=== PATIENT | male | born 1950 | race Caucasian/White ===

== ENCOUNTER 2019-07-23 07:39 | Inpatient (IN) ==
[2019-05-27 12:18] LABS: Basophils # (auto) 0.02 K/uL (0-0.2); Basophils % (auto) 0.3 %; Eosinophils # (auto) 0.06 K/uL (0-0.5); Eosinophils % (auto) 0.8 %; Hematocrit (blood only) 40.8 % (42-52); Hemoglobin 14.5 g/dL (14.0-18.0); Immature Granulocytes # (auto) 0.02 K/uL (0.00-0.02); Immature Granulocytes % (auto) 0.3 %; Lymphocytes # (auto) 1.11 K/uL (1.2-3.4); Lymphocytes % (auto) 15.4 %; Mean Corpuscular Hgb Conc 35.5 g/dL (32-36); Mean Corpuscular Volume 88.9 fL (80-100); Mean Platelet Volume 9.7 fL (7.4-10.4); Monocytes # (auto) 0.59 K/uL (0.11-0.59); Monocytes % (auto) 8.2 %; Neutrophils # (auto) 5.41 K/uL (1.4-6.5); Platelet Count 266 K/uL (130-400); RDW Coefficient of Variation 13.8 % (11.5-14.5); RDW Standard Deviation 45.1 fL (36.4-46.3); Red Blood Count 4.59 M/uL (4.7-6.1); White Blood Count 7.21 K/uL (4.8-10.8)
[2019-05-27 12:31] LABS: Sodium 137 mmol/L (136-145)
[2019-05-27 12:32] LABS: BUN Creatinine Ratio 13.9 (10-20); Blood Urea Nitrogen 16 mg/dl (7-18); Calcium 9.2 mg/dl (8.5-10.1); Carbon Dioxide 29 mmol/L (21-32); Chloride 103 mmol/L (98-107); Est GFR (African American) 75.6; Est GFR (Non-African American) 65.3; Glucose 95 mg/dl (70-99); Potassium 3.7 mmol/L (3.5-5.1)
[2019-05-27 13:25] LABS: Appearance Urine Clear (Clear); Bacteria Urine Automated Negative (Negative); Bilirubin Urine Negative (Negative); Blood Urine Negative (Negative); Cast Urine Automated 0 /lpf (0-5); Color Urine Yellow; Glucose Urine UA Negative (Negative); Ketones Urine Negative (Negative); Leukocyte Esterase Urine Negative (Negative); Nitrite Urine Negative (Negative); RBC Urine Automated 0-4 /hpf (0-4); Specific Gravity Urine 1.022 (1.000-1.030); Urobilinogen Urine Negative (Negative); pH Urine 7.5 (4.5-7.5)
[2019-05-27 13:47] LABS: Protein Urine Negative (Negative)
--- NOTE | 2019-05-30 15:47 | Anesthesiology Consultation ---
Date of Service May 30, 2019 Assessment & Plan (1) Encounter for pre-operative examination: Hx PNA: 04/2019: patient not seen at [facility] but per RN phone interview patient asymptomatic s/p treatment for PNA. CXR with previously seen MOHINDER consolidation has mostly resolved (Continued follow-up recommended to establish stability or resolution). Reviewed with Dr. Lobato, nothing further needed prior to surgery from anesthesia perspective. Will have anesthesiologist decide if repeat CXR needed based on evaluation of clinical status AM DOS. Chart Review Chart Review: Acceptable Risk for Surgery (pending evaluation of clinical status AM DOS) and Patient NOT seen in Pre Admission Testing History Surgery Operation Date: 06/19/19 07:15 Proposed Procedures p Left Shoulder Arthroscopy with Revision Rotator Cuff Repair - Sagar Sánchez MD Height/Weight Height: 6 ft Weight: 88.451 kg Allergies Allergy/AdvReac Type Severity Reaction Status Date / Time No Known Allergies Allergy Unverified 05/22/19 07:59 Medications Home Medications Medication Instructions Recorded Confirmed Last Taken Advair Diskus 1 dose INHALATION QAM 05/22/19 05/22/19 Unknown albuterol sulfate 1 puff INHALATION Q6H PRN 05/22/19 05/22/19 Unknown amlodipine 10 mg PO QAM 05/22/19 05/22/19 Unknown aspirin 81 mg PO QAM 05/22/19 05/22/19 Unknown atorvastatin [Lipitor] 40 mg PO PM 05/22/19 05/22/19 Unknown calcium carbonate-vitamin D3 2 tab PO QAM 05/22/19 05/22/19 Unknown [Calcium 600 with Vitamin D3] febuxostat [Uloric] 80 mg PO QAM 05/22/19 05/22/19 Unknown finasteride 5 mg PO QAM 05/22/19 05/22/19 Unknown fluoxetine 20 mg PO QAM 05/22/19 05/22/19 Unknown lisinopril-hydrochlorothiazide 1 tab PO QAM 05/22/19 05/22/19 Unknown montelukast [Singulair] 10 mg PO PM 05/22/19 05/22/19 Unknown multivitamin 1 tab PO QAM 05/22/19 05/22/19 Unknown omeprazole 20 mg PO QAM 05/22/19 05/22/19 Unknown Past Medical History Medical History Anxiety Asthma BPH (benign prostatic hyperplasia) Depression GERD (gastroesophageal reflux disease) Gout Hearing deficit B/L POLLOCK History of recent pneumonia 04/2019- "resolved" s/p treatment Hyperlipidemia Hypertension Osteopenia Past Family History Family History Father Family history of diabetes mellitus Grandmother (Maternal) Family history of diabetes mellitus Past Surgical History Surgical History History of anesthesia reaction difficult time weaning off oxygen after shoulder surgery= no further details History of colonoscopy W/ POLYPECTOMY History of esophagogastroduodenoscopy (EGD) History of left knee replacement History of repair of rotator cuff B/L History of tonsillectomy History of tooth extraction History of transurethral resection of prostate Social History Smoking Status: Never smoker Do You Dip or Chew Tobacco: No Hx Alcohol Use: Yes Alcohol type: beer alcohol intake frequency: a few times a month Hx Substance Use: No substance use type: does not use Testing Laboratory Results 05/27/19 11:38 05/27/19 11:38 Urine Color Yellow 05/27/19 11:38 Urine Appearance Clear (Clear) 05/27/19 11:38 Urine pH 7.5 (4.5-7.5) 05/27/19 11:38 Ur Specific [place] 1.022 (1.000-1.030) 05/27/19 11:38 Urine Protein Negative (Negative) 05/27/19 11:38 Urine Glucose (UA) Negative (Negative) 05/27/19 11:38 Urine Ketones Negative (Negative) 05/27/19 11:38 Urine Nitrite Negative (Negative) 05/27/19 11:38 Ur Leukocyte Esterase Negative (Negative) 05/27/19 11:38 Urine WBC (Auto) 1-5 /hpf (0-5) 05/27/19 11:38 Urine RBC (Auto) 0-4 /hpf (0-4) 05/27/19 11:38 U Hyaline Cast (Auto) 0 /lpf (0-5) 05/27/19 11:38 U Epithel Cells (Auto) 10-20 /lpf (0-5) H 05/27/19 11:38 Urine Bacteria (Auto) Negative (Negative) 05/27/19 11:38 Electrocardiogram Date: 05/27/19 SR with first degree AVB with occasional PVCs at 74bpm. NS STA. Chest X-Ray Date: 04/29/19 Previously seen MOHINDER consolidation has mostly resolved. There is linear scar ring/atelectasis in the MOHINDER. Continued follow-up recommended to establish stability or resolution. Stress Test Date: 10/21/14 Type: exercise Negative stress ECHO/EKG for ischemia at 87% MPHR. Low average exercise tolerance. LVEF 60-65%.
--- NOTE | 2019-06-24 17:19 | PAT Medication Instructions ---
Medication Instructions Date of Service June 24, 2019 Home Medications Advair Diskus 1 dose INHALATION QAM albuterol sulfate 1 puff INHALATION Q6H PRN amlodipine 10 mg PO QAM aspirin 81 mg PO QAM atorvastatin [Lipitor] 40 mg PO HS [Calcium 600 with Vitamin D3] 2 tab PO QAM febuxostat [Uloric] 80 mg PO QAM finasteride 5 mg PO QAM fluoxetine 20 mg PO QAM lisinopril-hydrochlorothiazide 1 tab PO QAM montelukast [Singulair] 10 mg PO PM multivitamin 1 tab PO QAM omeprazole 20 mg PO QAM DO NOT take the morning of surgery [Calcium 600 with Vitamin D3] 2 tab PO QAM finasteride 5 mg PO QAM lisinopril-hydrochlorothiazide 1 tab PO QAM multivitamin 1 tab PO QAM Take morning of surgery With a small sip of water, OTHERWISE NOTHING TO EAT OR DRINK AFTER MIDNIGHT: Advair Diskus 1 dose INHALATION QAM albuterol sulfate 1 puff INHALATION Q6H PRN (if needed, and please bring with you to the hospital) amlodipine 10 mg PO QAM aspirin 81 mg PO QAM febuxostat [Uloric] 80 mg PO QAM fluoxetine 20 mg PO QAM omeprazole 20 mg PO QAM Take evening before surgery albuterol sulfate 1 puff INHALATION Q6H PRN (if needed) atorvastatin [Lipitor] 40 mg PO HS montelukast [Singulair] 10 mg PO PM Other Notes If you have any questions please call us at [phone] or [phone] or [phone] or [phone]
[2019-06-25 15:13] LABS: INR 1.1 (0.9-1.1); Partial Thromboplastin Time 27.3 Seconds (21.0-31.0); Prothrombin Time 10.9 Seconds (9.0-12.0)
[2019-06-26 05:58] LABS: Estimated Average Glucose 134 mg/dl; Hemoglobin A1C 6.3 % (4.5-5.6)
--- NOTE | 2019-07-22 13:34 | History and Physical Report ---
DATE OF ADMISSION: 07/23/2019 CHIEF COMPLAINT: Chronic left shoulder pain and weakness. HISTORY OF PRESENT ILLNESS: This is a 69-year-old male patient of Dr. Smith, complaining of chronic left shoulder pain and weakness. The patient underwent a rotator cuff repair approximately 2 years ago and then again in 11/2018. Both repairs resulted in failure, diagnosed as having a chronic rotator cuff tear on the left shoulder per MRI. At this point in time, the patient wished to proceed with a left reversed total shoulder arthroplasty. PAST MEDICAL HISTORY: Hypertension, hypercholesterolemia, asthma, recent pneumonia, BPH. SOCIAL HISTORY: Nonsmoker, occasional drinker. PAST SURGICAL HISTORY: Bilateral rotator cuff surgery, left total knee replacement and left ACL surgery. FAMILY HISTORY: Noncontributory. REVIEW OF SYSTEMS: Chronic left shoulder pain and weakness with 2 rotator cuff repair failures. Otherwise, denies any shortness of breath, chest pain, nausea, vomiting or other joint complaints. MEDICATIONS: 1. Lisinopril/hydrochlorothiazide 20/12.5 one tablet daily. 2. ProAir HFA 90 mcg actuation aerosol 2 puffs every 4-6 hours as needed. 3. Uloric 40 mg daily. 4. Amlodipine 10 mg daily. 5. Atorvastatin 40 mg daily. 6. Montelukast 10 mg at bedtime. 7. Fluoxetine 20 mg q.a.m. 8. Finasteride 5 mg daily. 9. Testosterone 10 mg/0.5 g actuation topical, it is a transdermal gel pump to affected area in the morning. 10. Nasonex 50 mcg actuation spray 2 sprays daily in each nostril. 11. Aspirin 81 mg daily. 12. Advair HFA 115 mcg/21 mcg actuation inhaler 1 puff twice daily. ALLERGIES: No known drug allergies. HE IS ALLERGIC TO MOLD. PHYSICAL EXAMINATION: GENERAL: A well-developed, well-nourished 69-year-old male in no acute distress. He is alert and oriented x3 and pleasant. HEENT: Normocephalic, atraumatic. Extraocular motions are intact. Pupils are equal and reactive to light. HEART: Regular rate and rhythm, no murmurs. LUNGS: Clear. ABDOMEN: Soft, nontender, bowel sounds present. EXTREMITIES: Left shoulder active range of motion of 0-80 degrees, passively to 180 degrees, external rotation strength is 1/5, internal rotation is 4/5, abduction is 3/5. He has crepitation and pain with range of motion. NEUROLOGIC: Neurovascularly intact in the left upper extremity. DIAGNOSES: 1. Left shoulder rotator cuff arthropathy, chronic tears. 2. Hypertension. 3. Hypercholesterolemia. 4. Asthma. 5. Recent pneumonia. 6. Benign prostatic hyperplasia. PLAN: The patient was advised of his diagnosis. Indications, risks, benefits, postop course have all been reviewed. The patient wished to proceed with a left reversed total shoulder arthroplasty. Necessary consent forms, preoperative testing and clearances will be obtained.
[~2019-07-23 07:39] MED LIST: ACETAMINOPHEN 500 MG TAB PO SCH; CEFAZOLIN 2000MG 2,000 MG/15 ML SYR IV SCH; CeleBREX 200 MG CAP PO SCH; DEXAMETHASONE SOD INJ 4 MG/ML VIAL ONE; FAMOTIDINE 20 MG TAB PO SCH; GABAPENTIN 300 MG CAP PO SCH; GLYCOPYRROLATE 0.2 MG/ML VIAL ONE; LR 15ML/HR IV SCH; METOCLOPRAMIDE HCL 10 MG TABLET PO SCH; MIDAZOLAM HCL 1 MG/ML 2ML VIAL ONE; NEOSTIGMINE METHYLSULFATE 5 MG/5 ML SYR ONE; ONDANSETRON INJ 2 MG/ML 2 ML VIAL ONE; PROPOFOL IV EMULSION 10 MG/ML 20 ML VIAL IV ONE; ROCURONIUM BROMIDE 10 MG/ML 5 ML VIAL ONE; ROPIVACAINE 0.5% 5 MG/ML 30 ML VIAL ONE; dexAMETHasone 4 MG TAB PO SCH; fentaNYL citrate 100 MCG/2 ML VIAL ONE
--- NOTE | 2019-07-23 09:27 | History & Physical Bridge Note ---
Date of Service July 23, 2019 History & Physical Bridge Note I have examined the patient, reviewed the History & Physical and in the interval since the performance of the History & Physical I have noted the following changes of clinical significance: no changes noted
[2019-07-23] MEDS ORDERED: BACITRACIN INJ 50,000 UNIT VIAL ONE (10:51)
--- NOTE | 2019-07-23 13:18 | Post Operative Brief Note ---
Immediate Post Op Note v1 Date of Surgery July 23, 2019 Pre & Post Diagnosis Operation Date: 07/23/19 10:35 Pre-Op Diagnosis: LEFT SHOULDER ROTATOR CUFF ARTHROPATHY, recurrent rotator cuff tear status post rotator cuff repair Post-Op Diagnosis: LEFT SHOULDER ROTATOR CUFF ARTHROPATHY, glenohumeral degenerative arthritis, recurrent rotator cuff tear status post rotator cuff repair and biceps tendinopathy possible prior SLAP repair Procedure Operation Date: 07/23/19 10:35 Actual Procedures p Left Reverse Total Shoulder Arthroplasty, Biceps Tenodesis(Left) - Sagar Sánchez MD Surgeon Sagar Sánchez MD Head Of Merchandise Buying Pavel ASTORGA Estimated Blood Loss 200 Findings Consistent with Post-Op Diagnosis Specimens Humeral head Drains Hemovac Drain Anesthesia Type General Regional Complications none Disposition Accompanied Patient To Recovery: No Disposition: Recovery Room Overlapping Procedure I was present for: the critical portions of procedure.
--- NOTE | 2019-07-23 13:54 | XRay Report ---
XR shoulder LT min 2V routine CLINICAL HISTORY: Post shoulder surgery postoperative evaluation COMPARISON: None. DISCUSSION: Anatomic alignment posttotal left shoulder arthroplasty. Good contact between prosthetic and underlying bone. Expected soft tissue postoperative change. Minimal atelectasis left lung base. IMPRESSION: Anatomic alignment posttotal left shoulder arthroplasty. Minimal atelectasis left base. The above report was generated using voice recognition software. It may contain grammatical, syntax or spelling errors. Electronically signed by: Pavel Bush M.D. 07/23/2019 1:52 PM
--- NOTE | 2019-07-23 13:59 | Anesthesiology Progress Note ---
Date of Service July 23, 2019 Anesthesia Post Procedure Vital Signs Vital Signs: Temp Pulse Pulse Resp BP Pulse Ox 07/23/19 13:55 80 17 121/60 95 07/23/19 13:45 79 15 115/67 95 07/23/19 13:39 97.2 F L 82 14 115/78 97 07/23/19 08:18 98.6 F 80 20 149/94 H 96 Pain Intensity Left Shoulder: Pain Intensity: 4 Transfer of Care Handoff Completed per policy Notes Mental Status: alert / awake / arousable and participated in evaluation Patient Amnestic to Procedure: Yes Nausea / Vomiting: adequately controlled Pain: adequately controlled Airway Patency, RR, SpO2: stable & adequate BP & HR: stable & adequate Hydration State: stable & adequate Anesthetic Complications: no major complications apparent and Pt Satisfied with anesthetic care
[2019-07-23] MEDS ORDERED: ONDANSETRON INJ 2 MG/ML 2 ML VIAL IV PRN (16:37)
[2019-07-23] MEDS ORDERED: NALOXONE HCL 0.4 MG/1 ML VIAL/CARP IV PRN (16:37)
[2019-07-23] MEDS ORDERED: BISACODYL 10 MG SUPP PR PRN (16:37)
[2019-07-23] MEDS ORDERED: MAGNESIUM HYDROXIDE SUSP 30 ML UDC PO PRN (16:37)
[2019-07-23] MEDS ORDERED: ALBUTEROL HFA 8 GM INHALER INH PRN (16:37)
[2019-07-23] MEDS: ACETAMINOPHEN 500 MG TAB PO SCH ×2 (17:00→21:08)
[2019-07-23] MEDS: SODIUM CHLORIDE 0.9% 1000ML 1,000 ML IV SCH (18:29)
[2019-07-23] MEDS: CEFAZOLIN 2000MG 2,000 MG/15 ML SYR IV SCH (18:38)
--- NOTE | 2019-07-23 19:42 | Operative Report ---
Post Operative Report Pre & Post Diagnosis Operation Date: 07/23/19 10:35 Pre-Op Diagnosis: LEFT SHOULDER ROTATOR CUFF ARTHROPATHY recurrent tear failure rotator cuff repair Post-Op Diagnosis: LEFT SHOULDER ROTATOR CUFF ARTHROPATHY recurrent tear failure rotator cuff re pair glenohumeral DJD and biceps tendinopathy Procedure Operation Date: 07/23/19 10:35 Actual Procedures p Left Reverse Total Shoulder Arthroplasty, Biceps Tenodesis(Left) - Sagar Sánchez MD Surgeon Sagar Sánchez MD Account Services Representative Pavel ASTORGA Estimated Blood Loss 200 Findings Consistent with Post-Op Diagnosis Specimens Humeral head Drains 2 Hemovac Anesthesia Type General Regional Complications none Disposition Accompanied Patient To Recovery: No Disposition: Recovery Room Indications 69-year-old male who had a failed rotator cuff repair with recurrent tear rotator cuff. Long decision making process was performed considering revision repair with regeneten grafting versus just proceeding with reverse shoulder replacement. Patient wanted to to proceed with reverse shoulder replacement. Description of Procedure The patient was taken to the operating room and anesthetized under regional block and general anesthetic. The patient was positioned on the operating table in a 30 beachchair position with a towel roll under the medial border of the left scapula. The arm was draped free to be able to manipulate the shoulder as needed. The left upper extremity was prepped and draped in usual sterile fashion. Exam demonstrated subacromial crepitation forward elevation 150 abduction 90 external rotation 60. An anterior deltopectoral approach was performed. A longitudinal incision was made in the deltopectoral interval. The skin was incised sharply. Subcutaneous flaps were elevated off the fascia. The cephalic vein was dissected out and retracted lateral with the deltoid. The clavipectoral fascia was divided at the lateral margin of the conjoined tendon and extended up to the CA ligament. The following findings were noted there was chronic tenosynovitis of the biceps tendon. The subscapularis tendon was intact. There was thickened bursal scar tissue over the rotator cuff where he had previous repair. The supraspinatus tendon had a full-thickness tear with some retraction. There was thin tissue of the infraspinatus with tendinopathy of the infraspinatus. There was partial tearing of the infraspinatus undersurface.. The upper centimeter of the pectoralis was released for inferior exposure. The biceps tendon findings demonstrated significant tenosynovitis fluid collection around the biceps. This tissue was debrided. the biceps tendon was tenodesed to the pectoralis tendon with #2 FiberWire. The proximal biceps was resected. The subscapularis tendon was taken down off the lesser tuberosity using a subperiosteal dissection. A #1 Vicryl traction suture was placed into the free end of the subscapularis tendon and capsule. The subscapular muscle fibers were split longitudinally at the level of the circumflex vessels. The circumflex vessels were identified and tied off with silk ties and divided laterally. A Kitner elevator was used to free up the inferior fibers of the subscapularis off of the capsule. The axillary nerve was identified with a tug test and protected with a blunt Ami retractor between the nerve and the capsule. The subscapularis tendon was then taken down off of the lesser tuberosity subperiosteally and subperiosteal dissection was performed along the neck of the humerus as the arm is gradually actually rotated exposing the humeral head. Humeral head demonstrate that there were small to moderate inferior humeral osteophytes from anterior to posterior and the central region of the humeral head was a 12 mm area of significant articular thinning close to being complete down the bone with some surrounding grade 3 chondral malacia. Retractors were readjusted and the inferior osteophytes were all resected using an artist chisel. A Burrell elevator was used to assist in releasing the capsule of the neck of the humerus. The capsule was divided with Hensley scissors down to the glenoid released off the anterior glenoid and the rotator interval was released to meet the capsular release and a 360 release of the subscapularis was accomplished. A Fukuda retractor was placed into the joint retracting the humeral head posterior. Glenoid findings demonstrated grade III chondromalacia of the glenoid with fissuring over the entire glenoid surface but not exposed bone yet.. The labrum had some old sutures superiorly presumably from a SLAP type repair. The superior labrum and suture material and biceps tendon was resected. an anterior-inferior and posterior inferior capsular release were performed with electrocautery and a Burrell elevator on bone with the axillary nerve protected inferiorly by the retractor. Attention was then taken to the humeral preparation. The cutting guide was placed into the humeral head. It was positioned at 20 of retroversion. Oscillating saw was used to resect the humeral head giving the cut above the level of the posterior rotator cuff insertion site. The humerus was then prepared for the stem. I used the ascend flex stem from [employer]. The sizing broaches were used followed by trial broaches up to a size 6B long which had the appropriate fit and fill. The appropriate sized cut protector was placed. The humerus was then retracted posterior to the glenoid. The glenoid was sized for a 25 baseplate. The guide for the baseplate was positioned in a 10 inferior tilt and the central drill hole was made. The reamer for the 25 baseplate was used. The central drill was widened for the peg. The aequalis hydroxyapatite-coated 25 mm standard baseplate was impacted into position. The base plate was transfixed with superior and inferior locking screws and anterior and posterior compression screws with stable fixation. The fan reamer was used for the 36 millimeter glenoid sphere. After irrigation the 36 standard glenoid sphere was impacted onto the baseplate and the screw was tightened. Attention was taken back to the humerus. The cut protector was removed and the plus or high offset humeral tray trial was assembled to the trial stem rotated appropriately to get bony coverage and then screwed in position. A trial reduction was performed. A 9 mm trial insert demonstrated good stability and no shuck. The trials were removed. 3 drill holes are made into the harder bone in the bicipital groove area and 3 #5 FiberWire sutures were placed transosseously. The canal was irrigated with antibiotic solution with bacitracin. The final component was assembled. The final component was +9 mm thick 36 mm humeral polyethylene insert and +0 high offset humeral tray to the 6B long 150 mm stem component.. This was then impacted into the humerus with a tight press-fit. It was reduced to the glenoid sphere. Stability was verified. Subscapularis was repaired with the #5 FiberWire sutures using Tripp-Franki suture technique. Lateral row soft tissue repair was performed with #2 FiberWire [id number] sutures. The pectoralis was repaired with #2 FiberWire [id number] sutures reinforcing the biceps tendon tenodesis. The arm was taken through a range of motion which demonstrated 90 degrees of abduction 130 degrees forward elevation and 45 degrees of extra rotation without tension on repair. The implant was stable through the range of motion tested. The wound was copiously irrigated. 2 Hemo vac drains were placed. The deltopectoral interval was closed with [id number] #1 Vicryl sutures. The subcutaneous tissues were closed with 2- 0 Vicryl sutures. The skin was closed with amado. Sterile dressings were applied and a shoulder immobilizer. Pavel ASTORGA my physician assistant basketball coach assisted in the procedure to the entire procedure including patient positioning arm positioning prepping and draping soft tissue retraction instrument management suture management and performed the subcutaneous and skin closure and will participate in the postoperative care of the patient. I attest to the content of the Intraoperative Record and any orders documented therein. Any exceptions are noted below.
[2019-07-23] MEDS: MONTELUKAST SODIUM 10 MG TABLET PO SCH (21:08)
[2019-07-23] MEDS: DOCUSATE SODIUM 100 MG CAP PO SCH (21:08)
[2019-07-23] MEDS: ATORVASTATIN 40 MG TAB PO SCH (21:08)
[2019-07-23] MEDS: SENNA 8.6 MG TAB PO SCH (21:09)
[2019-07-24] MEDS: OXYCODONE HCL IR 5 MG TAB (IMMEDIATE RELEASE) PO PRN ×5 (01:20→23:38)
[2019-07-24] MEDS: CEFAZOLIN 2000MG 2,000 MG/15 ML SYR IV SCH (01:21)
[2019-07-24] MEDS: HYDROmorphone INJ 0.5 MG/0.5 ML SYR IV PRN ×4 (03:39→20:52)
[2019-07-24] MEDS: SODIUM CHLORIDE 0.9% 1000ML 1,000 ML IV SCH (03:42)
[2019-07-24] MEDS: ACETAMINOPHEN 500 MG TAB PO SCH ×3 (05:45→20:57)
[2019-07-24 06:42] LABS: Basophils # (auto) 0.01 K/uL (0-0.2); Basophils % (auto) 0.1 %; Eosinophils # (auto) 0.02 K/uL (0-0.5); Eosinophils % (auto) 0.2 %; Hemoglobin 10.3 g/dL (14.0-18.0); Immature Granulocytes # (auto) 0.02 K/uL (0.00-0.02); Immature Granulocytes % (auto) 0.2 %; Lymphocytes # (auto) 0.72 K/uL (1.2-3.4); Lymphocytes % (auto) 7.3 %; Mean Corpuscular Hgb Conc 33.2 g/dL (32-36); Mean Corpuscular Volume 90.4 fL (80-100); Mean Platelet Volume 9.6 fL (7.4-10.4); Monocytes # (auto) 0.88 K/uL (0.11-0.59); Neutrophils # (auto) 8.16 K/uL (1.4-6.5); Neutrophils % (auto) 83.2 %; Platelet Count 227 K/uL (130-400); RDW Coefficient of Variation 13.4 % (11.5-14.5); RDW Standard Deviation 43.8 fL (36.4-46.3); Red Blood Count 3.43 M/uL (4.7-6.1); White Blood Count 9.81 K/uL (4.8-10.8)
[2019-07-24 07:13] LABS: BUN Creatinine Ratio 14.4 (10-20); Calcium 8.3 mg/dl (8.5-10.1); Creatinine Clr Calc Pharmacy 62.7 ml/min; Est GFR (African American) 69.7; Est GFR (Non-African American) 60.1; Potassium 4.4 mmol/L (3.5-5.1)
--- NOTE | 2019-07-24 08:20 | Anesthesiology Progress Note ---
Date of Service July 24, 2019 Anesthesia Post Procedure Vital Signs Vital Signs: Temp Pulse Pulse Pulse Resp BP Pulse Ox 07/24/19 07:36 36.6 C 73 16 135/76 94 07/24/19 03:25 37.0 C 80 16 112/62 93 07/24/19 00:20 36.8 C 83 16 101/62 93 07/23/19 19:48 36.5 C 94 H 18 112/68 94 07/23/19 18:40 36.8 C 93 H 18 106/67 96 07/23/19 18:05 37.5 C 112 H 18 125/80 93 07/23/19 17:09 36.6 C 93 H 18 106/67 96 07/23/19 16:40 36.7 C 94 H 20 111/70 95 07/23/19 16:05 36.7 C 97 H 20 116/76 95 07/23/19 15:50 36.7 C 87 18 120/73 95 07/23/19 15:35 87 18 117/71 95 07/23/19 15:20 89 18 118/72 95 07/23/19 15:00 90 18 113/83 93 07/23/19 14:45 36.8 C 83 20 114/62 94 07/23/19 14:35 36.8 C 79 18 115/69 94 07/23/19 14:25 36.8 C 80 18 112/70 94 07/23/19 14:15 36.8 C 78 15 107/68 94 07/23/19 14:05 78 14 103/69 95 07/23/19 13:55 80 17 121/60 95 07/23/19 13:45 79 15 115/67 95 07/23/19 13:39 36.2 C L 82 14 115/78 97 Pain Intensity Left Shoulder: Pain Intensity: 4 Notes Mental Status: alert / awake / arousable and participated in evaluation Nausea / Vomiting: adequately controlled Pain: adequately controlled Airway Patency, RR, SpO2: stable & adequate BP & HR: stable & adequate Hydration State: stable & adequate
[2019-07-24] MEDS: ASPIRIN 81 MG ECTAB PO SCH (08:23)
[2019-07-24] MEDS: FINASTERIDE 5 MG TAB PO SCH (08:23)
[2019-07-24] MEDS: MULTIVITAMIN TAB PO SCH (08:23)
[2019-07-24] MEDS: AMLODIPINE BESYLATE 5 MG TAB PO SCH (08:23)
[2019-07-24] MEDS: CALCIUM 600MG + VIT D 400 IU TAB PO SCH (08:23)
[2019-07-24] MEDS: FLUOXETINE HCL 20 MG CAP PO SCH (08:23)
[2019-07-24] MEDS: PANTOprazole 40 MG TAB PO SCH (08:23)
[2019-07-24] MEDS: FEBUXOSTAT 40 MG TABLET PO SCH (08:23)
[2019-07-24] MEDS: LISINOPRIL/HCTZ 20/12.5MG 1 TAB TAB PO SCH (08:23)
[2019-07-24] MEDS: FLUTICASONE/SALMETEROL 100/50 (ADVAIR) 14 PUFF/1 INHALER INH SCH (08:24)
[2019-07-24] MEDS: DOCUSATE SODIUM 100 MG CAP PO SCH ×2 (08:24→20:57)
[2019-07-24] MEDS ORDERED: MULTIVITAMIN TAB PO SCH (09:00)
--- NOTE | 2019-07-24 10:40 | Orthopedic Progress Note ---
Date of Service July 24, 2019 Assessment & Plan (1) Rotator cuff arthropathy of left shoulder: POD #1, Left Reversed TSA, Biceps Tenodesis. Limited PT/ OT DVT proph- ASA D/C planning- Home w HEP. Subjective POD #1, Doing well. Denies SOB, CP, N/V. Pain controlled this AM. Physical Exam Physical Exam: Left shoulder dressings C/D/I, no drainage. Fingers mobile. Sling in tact. Drain in tact. A&Ox3. Results & Data Vital Signs (Past 12 Hours) Vital Signs Temp Pulse Resp BP Pulse Ox 07/24/19 07:36 36.6 C 73 16 135/76 94 07/24/19 03:25 37.0 C 80 16 112/62 93 07/24/19 00:20 36.8 C 83 16 101/62 93
[2019-07-24] MEDS ORDERED: Nursing to Pharmacy Communication ONE (15:05)
--- NOTE | 2019-07-24 16:13 | Hospitalist Consultation ---
Date of Consultation July 24, 2019 Assessment & Plan (1) Rotator cuff arthropathy of left shoulder: POD #1 S/p left reverse total shoulder arthroplasty & biceps tenodesis Per Ortho- Limited PT/ OT, DVT proph- ASA & SCD, D/C planning- Home w HEP. Will continue to monitor (2) Hypertension: Stable- BPs 138/78 May continue home medications- lisinopril/hctz, amlodipine (3) Hypercholesterolemia: Continue home atorvastatin 40mg (4) BPH (benign prostatic hyperplasia): Continue finasteride 5mg (5) GERD (gastroesophageal reflux disease): Continue protonix 40mg (6) Elevated hemoglobin A1c measurement: A1c 6.3 on admission- patient with strong family history of DM II- education regarding diet and exercise at this time Asymptomatic- Also of note, patient with recent steroid injections x 2 in the past several months. Rec repeat A1c in 3 months as outpatient (7) DVT prophylaxis: ASA SCDs History of Present Illness Reason for Consultation: Medical Management Requesting Physician: Dr. Gonzalo MD Attending Physician: Sagar Sánchez MD History of Present Illness Patient is a 69yo male POD #1 s/p left reverse total shoulder arthroplasty and biceps tenodesis by Dr. Sánchez with PMH significant for HTN, hypercholestrolemia, BPH (s/p TURP), GERD, MVP, asthma, osteopenia, depression.The patient had rotator cuff repair two years ago with revision November 2018, with two separate steroid injections since November. The patient had complaints of chronic left shoulder pain and weakness which have interfered with his ability to do the things which he previously enjoyed, including golfing and fishing, which prompted need for surgery. The patient states he is continuing to have significant pain in his left shoulder, which he states is worse than yesterday due to the block wearing off. He states the pain is worse than his prior knee surgery. He has been utilizing oxycodone for pain during this admission and has not required dilaudid. The patient has not had a bowel movement since surgery, and denies flatus. The patient denies any chest pain, dizziness, shortness of breath, abdominal pain, dysuria, swelling, fever or chills. Allergies Allergy/AdvReac Type Severity Reaction Status Date / Time suture Allergy Unknown SEE NOTES Verified 07/23/19 08:10 BELOW PLEASE Home Medications Home Medications Medication Instructions Recorded Confirmed Type albuterol sulfate 1 puff INHALATION Q6H PRN 05/22/19 07/23/19 History amlodipine 10 mg PO QAM 05/22/19 07/23/19 History aspirin 81 mg PO QAM 05/22/19 07/23/19 History atorvastatin [Lipitor] 40 mg PO HS 05/22/19 07/23/19 History calcium carbonate-vitamin D3 2 tab PO QAM 05/22/19 07/23/19 History [Calcium 600 with Vitamin D3] febuxostat [Uloric] 80 mg PO QAM 05/22/19 07/23/19 History finasteride 5 mg PO QAM 05/22/19 07/23/19 History fluoxetine 20 mg PO QAM 05/22/19 07/23/19 History fluticasone propion-salmeterol 1 dose INHALATION QAM 05/22/19 07/23/19 History [Advair Diskus] lisinopril-hydrochlorothiazide 1 tab PO QAM 05/22/19 07/23/19 History montelukast [Singulair] 10 mg PO PM 05/22/19 07/23/19 History multivitamin 1 tab PO QAM 05/22/19 07/23/19 History omeprazole 20 mg PO QAM 05/22/19 07/23/19 History ibuprofen [Advil] 200 mg PO Q6 PRN 07/23/19 07/23/19 History naproxen sodium [Aleve] 220 mg PO Q6 PRN 07/23/19 07/23/19 History Patient History Medical History Anxiety Asthma BPH (benign prostatic hyperplasia) Depression GERD (gastroesophageal reflux disease) Gout Hearing deficit B/L POLLOCK History of recent pneumonia 04/2019- "resolved" s/p treatment Hyperlipidemia Hypertension Osteopenia Surgical History History of anesthesia reaction difficult time weaning off oxygen after shoulder surgery= no further details History of colonoscopy W/ POLYPECTOMY History of esophagogastroduodenoscopy (EGD) History of left knee replacement History of repair of rotator cuff B/L History of tonsillectomy History of tooth extraction History of transurethral resection of prostate Family History Father Family history of diabetes mellitus Grandmother (Maternal) Family history of diabetes mellitus Social History Preferred Language: French Communication Ability: Effective 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 Beliefs That Will Affect Care: None Current Living Situation: Alone Other Information That Helps Us Care for You: No Feels Safe at Home: Yes Safety Concerns: Feels Safe At This Time Smoking Status: Never smoker Do You Dip or Chew Tobacco: No ; Second Hand Exposure: No ; Hx Alcohol Use: Yes Alcohol type: beer Alcohol Intake Frequency: Holidays/Special Occasions Hx Substance Use: No Review of Systems Review of Systems: All systems reviewed & are unremarkable except as noted in HPI & below Constitutional: + weakness (right shoulder,forearm and hand); no fever and no chills Ear, Nose, Mouth, Throat: no dizziness, no sore throat and no dysphagia Respiratory: no cough, no dyspnea and no wheezing Cardiovascular: no chest pain, no palpitations, no edema and no calf pain Gastrointestinal: no abdominal pain, no nausea, no vomiting and no dysphagia Genitourinary: no dysuria, no urinary incontinence and no flank pain Musculoskeletal: + muscle weakness; no back pain and no swelling Integumentary: no rash, no lesions and no wounds Neurologic: no falls, no tingling and no numbness Physical Exam Constitutional: WD/WN, vitals as above Eyes: PERRL, conjunctivae normal, anicteric sclerae ENMT: external ear and nose normal, oropharynx normal Neck: trachea midline, no thyromegaly Respiratory: normal respiratory effort, lungs clear to auscultation Cardiovascular: RRR, no murmur, no edema Gastrointestinal (Abdomen): normal bowel sounds, soft, nontender, no h epatosplenomegaly Musculoskeletal: + left shoulder sling and HEMOVAC Skin: no rashes, warm and dry Neurologic: normal touch/pain/proprioception Speech / Cognition: + abnormal speech Motor/Sensory: no tremor Psychiatric: A+Ox3, euthymic affect Results & Data Vital Signs (Past 12 Hours) Vital Signs Temp Pulse Resp BP Pulse Ox 07/24/19 11:09 36.4 C L 79 18 127/71 92 07/24/19 07:36 36.6 C 73 16 135/76 94 07/24/19 03:25 37.0 C 80 16 112/62 93 PG Care Time/CCT Total # of Minutes Spent Total Time Spent with Patient: Total time spent is greater than 50% in coordination of care (as documented) at patient's floor/unit and/or counseling patient: 45
[2019-07-24] MEDS: MONTELUKAST SODIUM 10 MG TABLET PO SCH (20:57)
[2019-07-24] MEDS: SENNA 8.6 MG TAB PO SCH (20:57)
[2019-07-24] MEDS: ATORVASTATIN 40 MG TAB PO SCH (20:58)
[2019-07-25] MEDS: OXYCODONE HCL IR 5 MG TAB (IMMEDIATE RELEASE) PO PRN ×3 (03:26→11:49)
[2019-07-25 05:19] LABS: Basophils # (auto) 0.03 K/uL (0-0.2); Basophils % (auto) 0.3 %; Eosinophils # (auto) 0.27 K/uL (0-0.5); Eosinophils % (auto) 2.9 %; Hematocrit (blood only) 31.7 % (42-52); Hemoglobin 10.5 g/dL (14.0-18.0); Immature Granulocytes # (auto) 0.04 K/uL (0.00-0.02); Immature Granulocytes % (auto) 0.4 %; Lymphocytes # (auto) 1.25 K/uL (1.2-3.4); Lymphocytes % (auto) 13.4 %; Mean Corpuscular Hgb Conc 33.1 g/dL (32-36); Mean Corpuscular Volume 91.4 fL (80-100); Monocytes # (auto) 1.27 K/uL (0.11-0.59); Monocytes % (auto) 13.6 %; Neutrophils # (auto) 6.47 K/uL (1.4-6.5); Neutrophils % (auto) 69.4 %; Platelet Count 204 K/uL (130-400); RDW Coefficient of Variation 13.5 % (11.5-14.5); RDW Standard Deviation 44.9 fL (36.4-46.3); Red Blood Count 3.47 M/uL (4.7-6.1); White Blood Count 9.33 K/uL (4.8-10.8)
[2019-07-25 05:52] LABS: BUN Creatinine Ratio 15.2 (10-20); Calcium 8.1 mg/dl (8.5-10.1); Creatinine Clr Calc Pharmacy 65.4 ml/min; Est GFR (African American) 73.3; Est GFR (Non-African American) 63.2; Magnesium 1.9 mg/dl (1.8-2.4); Potassium 3.7 mmol/L (3.5-5.1)
[2019-07-25] MEDS: ACETAMINOPHEN 500 MG TAB PO SCH (06:37)
[2019-07-25] MEDS: CALCIUM 600MG + VIT D 400 IU TAB PO SCH (07:48)
[2019-07-25] MEDS: PANTOprazole 40 MG TAB PO SCH (07:48)
[2019-07-25] MEDS: DOCUSATE SODIUM 100 MG CAP PO SCH (07:48)
[2019-07-25] MEDS: FEBUXOSTAT 40 MG TABLET PO SCH (07:49)
[2019-07-25] MEDS: FINASTERIDE 5 MG TAB PO SCH (07:49)
[2019-07-25] MEDS: ASPIRIN 81 MG ECTAB PO SCH (07:49)
[2019-07-25] MEDS: LISINOPRIL/HCTZ 20/12.5MG 1 TAB TAB PO SCH (07:49)
[2019-07-25] MEDS: MULTIVITAMIN TAB PO SCH (07:49)
[2019-07-25] MEDS: AMLODIPINE BESYLATE 5 MG TAB PO SCH (07:49)
[2019-07-25] MEDS: FLUTICASONE/SALMETEROL 100/50 (ADVAIR) 14 PUFF/1 INHALER INH SCH (07:50)
[2019-07-25] MEDS: FLUOXETINE HCL 20 MG CAP PO SCH (07:50)
--- NOTE | 2019-07-25 08:24 | Orthopedic Progress Note ---
Date of Service July 25, 2019 Assessment & Plan (1) Rotator cuff arthropathy of left shoulder: POD #2, Left Reversed TSA, Biceps Tenodesis. Limited PT/ OT DVT proph- ASA D/C planning- Home w HEP today. Subjective POD #2, Doing well. Denies SOB, CP, N/V. Pain controlled this AM. Physical Exam Physical Exam: Left shoulder dressings c/d/i, no drainage. Sling in tact. Fingers mobile. A&Ox3. Results & Data Vital Signs (Past 12 Hours) Vital Signs Temp Pulse Pulse Resp BP Pulse Ox 07/25/19 08:01 36.7 C 74 18 136/79 92 07/24/19 23:46 36.6 C 78 16 162/84 H 92
== END 2019-07-25 12:09 | disposition home or self-care (01) | DRG 483 ==
LOC: ASU 07:39 → 3E 13:44
DX: Z79.51 Long term (current) use of inhaled steroids; F32.9 Major depressive disorder, single episode, unspecified; Z79.899 Other long term (current) drug therapy; M10.9 Gout, unspecified; Z79.82 Long term (current) use of aspirin; N40.0 Benign prostatic hyperplasia without lower urinary tract symptoms; F41.9 Anxiety disorder, unspecified; I10 Essential (primary) hypertension; K21.9 Gastro-esophageal reflux disease without esophagitis; M75.102 Unspecified rotator cuff tear or rupture of left shoulder, not specified as traumatic; M85.80 Other specified disorders of bone density and structure, unspecified site; R73.09 Other abnormal glucose; E78.5 Hyperlipidemia, unspecified; J45.909 Unspecified asthma, uncomplicated; M19.012 Primary osteoarthritis, left shoulder; E78.00 Pure hypercholesterolemia, unspecified